=== PATIENT | female | born 1965 | race Caucasian/White ===

== ENCOUNTER 2021-10-31 11:54 | Emergency (ER) | payer OTHER ==
[~2021-10-31] VITALS: Ht 170.2 cm; Wt 52.2 kg
[2021-10-31] MEDS ORDERED: ONDA4ODT MM (15:23)
== END 2021-10-31 15:33 | disposition home or self-care (01) ==
LOC: ER 11:54
DX: R11.0 Nausea (principal); Z20.822 Contact with and (suspected) exposure to COVID-19
CPT/HCPCS: 99283

== ENCOUNTER → 2022-07-11 | Outpatient (CLI) | payer OTHER ==
[~2022-07-11] MED LIST: ONDA4ODT MM
== END | disposition home or self-care (01) ==
LOC: LAB SHORT 16:32 → LAB 16:32
DX: R30.0 Dysuria (principal)
CPT/HCPCS: 87086

== ENCOUNTER 2022-12-12 11:40 | Day surgery (SDC) | payer OTHER ==
[~2022-12-12] VITALS: Ht 167.6 cm; Wt 60.1 kg
[2022-12-12] MEDS ORDERED: [UNRECOGNIZED DRUG - CODE] PO (12:25)
[2022-12-12] MEDS ORDERED: ESCI10 PO (12:26)
[2022-12-12] MEDS ORDERED: Cyclobenzaprine5 MG PO (12:26)
[2022-12-12 15:43] VITALS: BP 122/86
== END 2022-12-12 14:05 | disposition home or self-care (01) ==
LOC: ORSCSDS 11:40
PROVIDERS: Surgery
PROC: 0DJD8ZZ Inspection of Lower Intestinal Tract, Via Natural or Artificial Opening Endoscopic (ICD-10-PCS; principal; 2022-12-12 13:00)
DX: Z12.11 Encounter for screening for malignant neoplasm of colon (principal); K57.30 Diverticulosis of large intestine without perforation or abscess without bleeding; K64.8 Other hemorrhoids; Z87.891 Personal history of nicotine dependence; Z79.899 Other long term (current) drug therapy
CPT/HCPCS: J2704; J7120

== ENCOUNTER 2023-03-04 08:14 | Emergency (ER) | payer OTHER ==
[~2023-03-04] VITALS: Ht 167.6 cm; Wt 59.0 kg
[~2023-03-04 08:14] MED LIST changes: +Cyclobenzaprine5 MG PO; +ESCI10 PO; +[UNRECOGNIZED DRUG - CODE] PO
[2023-03-04 09:45] LABS: BASOPHILS ABSOLUTE AUTO 0.05 K/mm3 (0.00-0.23); BASOPHILS PERCENT AUTO 0 % (0-2); EOSINOPHILS ABSOLUTE AUTO 0.06 K/mm3 (0.00-0.68); EOSINOPHILS PERCENT AUTO 0 % (0-6); Hematocrit 42.9 % (33.0-51.0); Hemoglobin 14.5 g/dL (11.5-16.0); IMMATURE GRAN ABSOLUTE AUTO 0.07 K/mm3 (0.00-0.10); IMMATURE GRAN PERCENT AUTO 1 % (0-1); LYMPHOCYTES ABSOLUTE AUTO 1.41 K/mm3 (0.84-5.20); LYMPHOCYTES PERCENT AUTO 9 % (21-46); MONOCYTES ABSOLUTE AUTO 1.19 K/mm3 (0.16-1.47); MONOCYTES PERCENT AUTO 8 % (4-13); Mean Corpuscular HGB 32.1 pg (26.0-34.0); Mean Corpuscular HGB Conc 33.8 g/dL (31.5-36.5); Mean Corpuscular Volume 95 fL (80-100); Mean Platelet Volume 11.2 fL (9.1-12.4); NEUTROPHILS ABSOLUTE AUTO 12.76 K/mm3 (1.96-9.15); NEUTROPHILS PERCENT AUTO 82 % (41-73); Platelet Count 172 K/mm3 (150-400); RDW Coefficient Variation 12.2 % (11.7-14.2); RDW Standard Deviation 42.5 fL (35.1-46.3); Red Blood Cell Count 4.52 M/mm3 (3.80-5.20); White Blood Cell Count 15.54 K/mm3 (4.00-11.30)
[2023-03-04 09:57] LABS: Albumin, Blood 4.1 g/dL (3.4-5.0); Bilirubin, Total 1.4 mg/dL (0.1-1.0); Bun/Creatinine Ratio 14.1 (12.0-20.0); Calcium, Blood 9.2 mg/dL (8.5-10.1); Creatinine, Blood 0.5 mg/dL (0.40-1.00); Potassium, Blood 4.8 mmol/L (3.5-5.5); Total Protein, Blood 8.1 g/dL (6.4-8.2)
[2023-03-04 15:41] LABS: Source, Urine Straight Cath
[2023-03-04 15:46] LABS: Appearance, Urine Hazy (Clear); Bilirubin, Urine Neg (Neg); Blood, Urine 5+ (Neg); Color, Urine Brown (P-Yellow); Glucose Qualitative, Urine Neg (Neg); Ketones, Urine 3+ (Neg); Leukocyte Esterase, Urine 3+ (Neg); Nitrite, Urine Pos (Neg); Protein, Urine 3+ (Neg); Specific Gravity, Urine 1.015 (1.003-1.022); Urobilinogen, Urine NORM (Normal)
[2023-03-04 16:03] LABS: Bacteria Many /hpf; Red Blood Cells, Urine TNTC /hpf (0-2); Squamous Epithelial Cells Not Seen /hpf (Few); White Blood Cells, Urine 25-50 /hpf (0-5)
[2023-03-04 19:00] VITALS: BP 142/71
== END 2023-03-04 19:52 | disposition short-term general hospital (02) ==
LOC: ER 08:14
PROVIDERS: Physician Assistant; Student in an Organized Health Care Education/Training Program
DX: N13.6 Pyonephrosis (principal); A41.9 Sepsis, unspecified organism; Z79.899 Other long term (current) drug therapy
CPT/HCPCS: 76830; 76856; 80053; 81001; 84703; 85025; 86850; 86900; 86901; 87077; 87086; 87186; 96361; 96374; 96375; 96376; 99285-25; J0696; J0780; J1170; J1885; J2270; J2405; J2765; J7030; P9612

== ENCOUNTER 2023-05-02 08:31 | Emergency (ER) | payer OTHER ==
[~2023-05-02] VITALS: Ht 167.6 cm; Wt 68.0 kg
[2023-05-02] MEDS ORDERED: Ketorolac Tromethamine 15mg Vial IV ONE (08:50)
[2023-05-02] MEDS ORDERED: Nitrofurantoin100 M1 PO (08:51)
[2023-05-02 09:19] LABS: BASOPHILS ABSOLUTE AUTO 0.07 K/mm3 (0.00-0.23); BASOPHILS PERCENT AUTO 1 % (0-2); EOSINOPHILS ABSOLUTE AUTO 0.21 K/mm3 (0.00-0.68); EOSINOPHILS PERCENT AUTO 3 % (0-6); Hematocrit 45.6 % (33.0-51.0); Hemoglobin 15.1 g/dL (11.5-16.0); IMMATURE GRAN ABSOLUTE AUTO 0.07 K/mm3 (0.00-0.10); IMMATURE GRAN PERCENT AUTO 1 % (0-1); LYMPHOCYTES ABSOLUTE AUTO 1.88 K/mm3 (0.84-5.20); LYMPHOCYTES PERCENT AUTO 23 % (21-46); MONOCYTES PERCENT AUTO 7 % (4-13); Mean Corpuscular HGB 31.7 pg (26.0-34.0); Mean Corpuscular HGB Conc 33.1 g/dL (31.5-36.5); Mean Corpuscular Volume 96 fL (80-100); Mean Platelet Volume 9.9 fL (9.1-12.4); NEUTROPHILS ABSOLUTE AUTO 5.34 K/mm3 (1.96-9.15); NEUTROPHILS PERCENT AUTO 65 % (41-73); Platelet Count 293 K/mm3 (150-400); RDW Coefficient Variation 12.9 % (11.7-14.2); RDW Standard Deviation 46.2 fL (35.1-46.3); Red Blood Cell Count 4.77 M/mm3 (3.80-5.20); White Blood Cell Count 8.17 K/mm3 (4.00-11.30)
[2023-05-02 09:44] LABS: Albumin, Blood 4.1 g/dL (3.4-5.0); Bilirubin, Total 0.9 mg/dL (0.1-1.0); Bun/Creatinine Ratio 21.6 (12.0-20.0); Calcium, Blood 9.9 mg/dL (8.5-10.1); Creatinine, Blood 0.83 mg/dL (0.40-1.00); Globulin, Blood 4.2 g/dL (2.2-4.0); Potassium, Blood 3.6 mmol/L (3.5-5.5); Total Protein, Blood 8.3 g/dL (6.4-8.2)
[2023-05-02 10:09] LABS: Influenza A, PCR NEGATIVE (NEGATIVE); Influenza B, PCR NEGATIVE (NEGATIVE); Resp Syncytial Virus, PCR NEGATIVE (NEGATIVE); SARS-Cov-2 (COVID-19) PCR, MMC NEGATIVE (NEGATIVE)
[2023-05-02 12:15] VITALS: BP 110/84
[2023-05-02] MEDS ORDERED: ONDA4ODT MM (12:23)
== END 2023-05-02 13:20 | disposition home or self-care (01) ==
LOC: ER 08:31
PROVIDERS: Physician Assistant
DX: B34.9 Viral infection, unspecified (principal); R07.9 Chest pain, unspecified; Z79.899 Other long term (current) drug therapy
CPT/HCPCS: 0241U; 71046; 80053; 84484; 85025; 93005; 93010; 96374; 99284-25; J1885

== ENCOUNTER → 2023-07-08 | Outpatient (CLI) | payer OTHER ==
[~2023-07-08] MED LIST changes: +Nitrofurantoin100 M1 PO
[2023-07-08 12:47] LABS: Bacterial Vaginosis PCR Negative (NEGATIVE); Candida Group, PCR NOT DETECTED (NOT DETECT); Candida glabrata-krusei, PCR NOT DETECTED (NOT DETECT)
== END | disposition home or self-care (01) ==
LOC: LAB 09:02 → LAB SHORT 09:02
PROVIDERS: Family Medicine
DX: A59.03 Trichomonal cystitis and urethritis (principal)
CPT/HCPCS: 87481; 87661; 87801

== ENCOUNTER 2024-07-07 07:48 | Inpatient (IN) | payer OTHER ==
[~2024-07-07] VITALS: Ht 170.2 cm; Wt 57.8 kg
[2024-07-07] VITALS (23 sets, daily range): BP systolic 96–105; BP diastolic 75–88
[2024-07-07] MEDS ORDERED: Ondansetron HCl 2 MG / ML 2ML Vial IV PRN (08:20)
[2024-07-07 08:30] LABS: BASOPHILS ABSOLUTE AUTO 0.05 K/mm3 (0.00-0.23); BASOPHILS PERCENT AUTO 0 % (0-2); EOSINOPHILS ABSOLUTE AUTO 0.07 K/mm3 (0.00-0.68); EOSINOPHILS PERCENT AUTO 1 % (0-6); Hematocrit 40.5 % (33.0-51.0); Hemoglobin 14.5 g/dL (11.5-16.0); IMMATURE GRAN ABSOLUTE AUTO 0.09 K/mm3 (0.00-0.10); IMMATURE GRAN PERCENT AUTO 1 % (0-1); LYMPHOCYTES ABSOLUTE AUTO 3.07 K/mm3 (0.84-5.20); LYMPHOCYTES PERCENT AUTO 20 % (21-46); MONOCYTES ABSOLUTE AUTO 1.03 K/mm3 (0.16-1.47); MONOCYTES PERCENT AUTO 7 % (4-13); Mean Corpuscular HGB 32.4 pg (26.0-34.0); Mean Corpuscular HGB Conc 35.8 g/dL (31.5-36.5); Mean Corpuscular Volume 90 fL (80-100); Mean Platelet Volume 10.4 fL (9.1-12.4); NEUTROPHILS ABSOLUTE AUTO 10.78 K/mm3 (1.96-9.15); NEUTROPHILS PERCENT AUTO 72 % (41-73); Platelet Count 206 K/mm3 (150-400); RDW Coefficient Variation 12.1 % (11.7-14.2); RDW Standard Deviation 40.2 fL (35.1-46.3); Red Blood Cell Count 4.48 M/mm3 (3.80-5.20); White Blood Cell Count 15.09 K/mm3 (4.00-11.30)
[2024-07-07 08:51] LABS: Albumin, Blood 4.3 g/dL (3.4-5.0); Albumin/Globulin Ratio 1.3 (0.8-1.8); Bilirubin, Total 1.8 mg/dL (0.1-1.0); Bun/Creatinine Ratio 14.9 (12.0-20.0); Calcium, Blood 8.6 mg/dL (8.5-10.1); Creatinine, Blood 0.6 mg/dL (0.40-1.00); Globulin, Blood 3.3 g/dL (2.2-4.0); Potassium, Blood 3.7 mmol/L (3.5-5.5); Total Protein, Blood 7.6 g/dL (6.4-8.2)
[2024-07-07] MEDS ORDERED: Aspirin 325 MG Tab PO ONE (09:05)
[2024-07-07] MEDS ORDERED: Magnesium Sulf 2 GM/Water 50ML 50 ML IV ONE (09:10)
[2024-07-07] MEDS ORDERED: Morphine Sulfate 4 MG/1 ML Injection IV ONE (09:10)
[2024-07-07 10:18] LABS: Anti-Xa UFH, PHA Monitoring <0.10 IU/mL; International Normalized Ratio 1.04; Prothrombin Time Results 11.1 Sec (9.7-11.5)
[2024-07-07] MEDS ORDERED: Heparin Sodium 5000 Units/ML 1ML MDV IV ONE (10:45)
[2024-07-07] MEDS ORDERED: Heparin Sodium,Porcine/0.5 NS 500 ML IV SCH (10:45)
[2024-07-07] MEDS ORDERED: Nitroglycerin 0.4 MG SUBL SL PRN (12:40)
[2024-07-07] MEDS ORDERED: NS 1,000 ML IV ONE ×2 (13:26→13:49)
[2024-07-07] MEDS ORDERED: Verapamil HCL 2.5 MG/ML 2ML Injection ONE (13:26)
[2024-07-07] MEDS ORDERED: Nitroglycerin 2 MG/20 ML BTL ONE (13:26)
[2024-07-07] MEDS ORDERED: Heparin Sodium 1000 Units/ML 10ML MDV ONE (13:26)
[2024-07-07] MEDS ORDERED: NS 250 ML IV ONE (13:26)
[2024-07-07] MEDS ORDERED: FentaNYL Citrate 50 MCG/ML 2 ML Injection ONE (13:49)
[2024-07-07] MEDS ORDERED: Midazolam HCl 1MG / ML 2ML Vial ONE (13:49)
--- NOTE | 2024-07-07 15:03 | NUR ---
PT UPDATE: REPORT FROM ED RN GONZÁLEZ GIVEN VIA PHONE CALL. PT IN MICROBIOLOGY DIRECTOR. WILL CONTINUE TO AWAIT ARRIVAL.
--- NOTE | 2024-07-07 16:00 | NUR ---
ASSUMPTION OF CARE: ASSUMED CARE OF PT AT 1520. PT TO ICU 15 FROM COMMERCIAL MANAGER, ACCOMPANIED BY COMMERCIAL MANAGER RNS AND TRANSPORTED VIA . PT SITTING INDEPENDENTLY IN , A&O X4. PT INDEPENDENTLY TRANSFERRED FROM TO BED W/STANDBY ASSIST. PT SBP SOFT 100S. HR 80-90S. SINUS. TR BAND TO RIGHT WRIST, PER COMMERCIAL MANAGER LEFT ULNAR ACCESSED. NO HEMATOMA NOTED AT PROCEDURE SITE, NO REDNESS, CIRCULATION APPROPRIATE, PULSE STRONG. PT ON RA, SATS >95%. BREATHING EVEN AND UNLABORED. PT HAD NAUSEA IN ED, ZOFRAN GIVEN THEN, NO REPORTS OF NAUSEA ON ARRIVAL TO ICU. PT TAKING SIPS OF WATER. PT HAS 20G IVS IN [facility]. NOTHING INFUSING AT THIS TIME. HEPARING STOPPED IN COMMERCIAL MANAGER AT 1348. PLAN TO CONTINUE HEPARING 4HRS AFTER TR BAND REMOVAL. THIS RN TO CONTINUE TO MONITOR.
[2024-07-07] MEDS ORDERED: Acetaminophen 325 MG TABLET PO PRN (16:05)
[2024-07-07] MEDS ORDERED: Ondansetron HCl 2 MG / ML 2ML Vial IV ONE (16:40)
[2024-07-07] MEDS ORDERED: Pantoprazole Sodium 40 MG Injection IV SCH (17:00)
--- NOTE | 2024-07-07 17:14 | NUR ---
"Spiritual Care Visit | Pt. request Pt. is awake in bed and welcomed my visit. Pt. is pleasant. Facilitated a life review and considered matters of yadiel and belief. Pt. also verbalized some details of her son's recent . Listened with empathy and compassion. Pt. displayed evidence of being aware and alert. Prayed with the Pt. Pt. verbalized gratitude for the spiritual care visit and welcomed this plug saw operator to return."
[2024-07-07 17:23] LABS: Hematocrit 41.4 % (33.0-51.0); Hemoglobin 14.4 g/dL (11.5-16.0)
--- NOTE | 2024-07-07 17:27 | NUR ---
UPDATE PT HAD ONE EPISODE OF ALEX BROWN/RED EMESIS. PT MEDICATED PER EMAR. HOSPITALIST NOTIFIED AND PROVIDER PLACED ORDERS. CARDIOLOGY UPDATED. PT REPORTS RELIEF AFTER ZOFRAN.
[2024-07-07 17:58] LABS: CHOL/HDL RATIO 2.9; Cholesterol 236 mg/dL (50-200); HDL Cholesterol 82 mg/dL (>39); LDL/HDL RATIO 1.7; Low Density Lipoprotein Chol 137 mg/dL (0-110); Magnesium, Blood 2.4 mg/dL (1.6-2.4); Triglycerides 85 mg/dL (30-160); Very Low Density Lipoprot Chol 17 mg/dL (6-32)
[2024-07-07 18:19] LABS: U Cannabinoids Screen DETECTED
[2024-07-07 18:20] LABS: U Amphetamine Screen Not Detected; U Barbituate Screen Not Detected; U Benzodiazapine Screen Not Detected; U Buprenorphine Screen Not Detected; U Cocaine Screen Not Detected; U Methadone Screen Not Detected; U Methamphetamine Screen Not Detected; U Opiates Screen DETECTED; U Oxycodone Screen Not Detected; U Phencyclidine Screen Not Detected
[2024-07-08] VITALS (18 sets, daily range): BP systolic 81–111; BP diastolic 48–90
--- NOTE | 2024-07-08 00:23 | NUR ---
TRANSFER NOTE PT A/OX4, VSS, ON ROOM AIR, ON TELE. TR BAND REMOVED AT 230, NO HEMATOMA OR OOZING, TEGADERM AND ARMBOARD PLACED. PT DENIES CP. PIV'S SALINE LOCKED. ALL OF PT'S BELONGINGS AND MEDS WALKED OVER W/ PT VIA WHEELCHAIR. NO ACUTE EVENTS. BEDSIDE REPORT GIVEN TO ACCEPTING RN.
--- NOTE | 2024-07-08 00:28 | NUR ---
ASSUMED CARE AT 1205. REPORT RECEIVED FROM EXECUTIVE MANAGER SHELDON. PT IS A/OX4, ON RA, VSS, ON TELEMETRY. SHE IS ABLE TO AMBULATE INDEPENDENTLY FROM WHEELCHAIR TO HOSPITAL BED. RIGHT RADIAL SITE IS DRESSED WITH TEGADERM. NO SWELLING, REDNESS, OOZING, OR HEMATOMA NOTED AT SITE. PT STATES IT IS A BIT SORE. TREATED WITH TYLENOL. HEPARIN GTT TO RESUME AT 0320. PT IS RESTING COMFORTABLY IN BED WITH CALL LIGHT IN REACH.
[2024-07-08] MEDS ORDERED: Citalopram Hydrobromide 10 MG TAB PO SCH ×2 (02:00→09:00)
[2024-07-08] MEDS ORDERED: Dose Adjust by Pharmacy XX STA ×3 (02:27→15:38)
[2024-07-08] MEDS ORDERED: Heparin Sodium,Porcine/0.5 NS 500 ML IV SCH (02:30)
--- NOTE | 2024-07-08 04:41 | NUR ---
SHIFT SUMMARY NO ACUTE EVENTS SINCE TRANSFER TO PCU. PT REMAINS A/OX4, COOPERATIVE WITH CARE, AND PLEASANT. ON RA. VSS. RESUMED HEPARIN DRIP AT 15. RADIAL SITE IS CDI. PT DENIES CHEST PAIN/PRESSURE, BUT DOES REPORT SOME SORENESS IN CHEST.
[2024-07-08 06:15] LABS: BASOPHILS ABSOLUTE AUTO 0.05 K/mm3 (0.00-0.23); BASOPHILS PERCENT AUTO 0 % (0-2); EOSINOPHILS ABSOLUTE AUTO 0.07 K/mm3 (0.00-0.68); EOSINOPHILS PERCENT AUTO 1 % (0-6); Hematocrit 41.7 % (33.0-51.0); Hemoglobin 14.4 g/dL (11.5-16.0); IMMATURE GRAN ABSOLUTE AUTO 0.03 K/mm3 (0.00-0.10); IMMATURE GRAN PERCENT AUTO 0 % (0-1); LYMPHOCYTES ABSOLUTE AUTO 3.97 K/mm3 (0.84-5.20); LYMPHOCYTES PERCENT AUTO 30 % (21-46); MONOCYTES ABSOLUTE AUTO 0.66 K/mm3 (0.16-1.47); MONOCYTES PERCENT AUTO 5 % (4-13); Mean Corpuscular HGB 31.8 pg (26.0-34.0); Mean Corpuscular HGB Conc 34.5 g/dL (31.5-36.5); Mean Corpuscular Volume 92 fL (80-100); Mean Platelet Volume 11.7 fL (9.1-12.4); NEUTROPHILS PERCENT AUTO 65 % (41-73); Platelet Count 179 K/mm3 (150-400); RDW Coefficient Variation 12.6 % (11.7-14.2); RDW Standard Deviation 42.6 fL (35.1-46.3); Red Blood Cell Count 4.53 M/mm3 (3.80-5.20); White Blood Cell Count 13.48 K/mm3 (4.00-11.30)
[2024-07-08 06:20] LABS: Bun/Creatinine Ratio 11.3 (12.0-20.0); Calcium, Blood 8.6 mg/dL (8.5-10.1); Creatinine, Blood 0.62 mg/dL (0.40-1.00); Potassium, Blood 3.5 mmol/L (3.5-5.5)
[2024-07-08] MEDS ORDERED: Atorvastatin 40 MG Tab PO SCH (09:00)
[2024-07-08] MEDS ORDERED: Aspirin 81 MG Chew PO SCH (09:00)
[2024-07-08] MEDS ORDERED: TraMADol HCl 50 MG Tab PO PRN (13:50)
--- NOTE | 2024-07-08 15:18 | NUR ---
Pt. is awake in bed and welcomed my visit Pt. is pleasant and was able to verbalize her plan of care. Visit was cut short by a Trauma call. Prayed with the Pt. Pt.verbalized gratitude for the spiritual care visit and welcomed this home sales consultant to return.
--- NOTE | 2024-07-08 18:46 | NUR ---
PT A&O4 ON RA. SHE IS ON A HEP GTT 15 UNITS/KG/HR FOR NSTEMI. LAST 2 UNF ANTIXA DRAWS HAVE BEEN IN THE THERAPEUTIC RANGE. NEXT DRAW WILL BE IN THE MORNING. PT DOES C/O OF PAIN TO THE NECK AND CHEST, WHICH IS BEING TREATED PER EMAR. SHE IS A SBA TO RESTROOM. HER PUNCTURE SITE FROM THE ANGIO ON 07/07 IS WNL W/ARMBOARD IN PLACE.
[2024-07-09 00:41] VITALS: BP 115/81
--- NOTE | 2024-07-09 04:32 | NUR ---
SHIFT SUMMARY PT A/OX4, PLEASANT, COOPERATIVE WITH CARE, VERBALIZES NEEDS. PT REPORTED PAIN DURING DAY SHIFT IN NECK AND CHEST THAT IS WELL MANAGED WITH PRESCRIBED MEDICATIONS. TREATING PER EMAR. VSS, PULSES PALPABLE. CAP REFILL UNDER 3 SECONDS. SINUS RHYTHM WITH HR IN 80S ON RA, SATS ABOVE 90%, PT DENIES SOB. RIGHT RADIAL SITE DISPLAYS NO SWELLING, REDNESS, BLEEDING, HEMATOMA, OR OOZING. PT AMBULATING INDEPENDENTLY IN ROOM WITH SBA FOR CORD/LINE MANAGEMENT TO BATHROOM. HEPARIN RUNNING AT 15. NO BM FOR PENDING GUAIAC. ON CLEAR LIQUID DIET, TOLERATING WELL. DENIES NAUSEA.
[2024-07-09 04:55] VITALS: BP 123/93
[2024-07-09 05:23] LABS: BASOPHILS ABSOLUTE AUTO 0.05 K/mm3 (0.00-0.23); BASOPHILS PERCENT AUTO 1 % (0-2); EOSINOPHILS ABSOLUTE AUTO 0.14 K/mm3 (0.00-0.68); EOSINOPHILS PERCENT AUTO 1 % (0-6); Hematocrit 40.4 % (33.0-51.0); Hemoglobin 13.7 g/dL (11.5-16.0); IMMATURE GRAN ABSOLUTE AUTO 0.04 K/mm3 (0.00-0.10); IMMATURE GRAN PERCENT AUTO 0 % (0-1); LYMPHOCYTES PERCENT AUTO 38 % (21-46); MONOCYTES ABSOLUTE AUTO 0.87 K/mm3 (0.16-1.47); MONOCYTES PERCENT AUTO 8 % (4-13); Mean Corpuscular HGB Conc 33.9 g/dL (31.5-36.5); Mean Corpuscular Volume 94 fL (80-100); NEUTROPHILS ABSOLUTE AUTO 5.66 K/mm3 (1.96-9.15); NEUTROPHILS PERCENT AUTO 52 % (41-73); Platelet Count 193 K/mm3 (150-400); RDW Coefficient Variation 12.7 % (11.7-14.2); RDW Standard Deviation 43.8 fL (35.1-46.3); Red Blood Cell Count 4.28 M/mm3 (3.80-5.20); White Blood Cell Count 10.86 K/mm3 (4.00-11.30)
[2024-07-09 05:57] LABS: Bun/Creatinine Ratio 9.6 (12.0-20.0); Calcium, Blood 9.1 mg/dL (8.5-10.1); Creatinine, Blood 0.63 mg/dL (0.40-1.00); Potassium, Blood 3.4 mmol/L (3.5-5.5)
[2024-07-09] MEDS ORDERED: Dose Adjust by Pharmacy XX STA ×2 (06:15→19:25)
[2024-07-09] MEDS ORDERED: Potassium Chloride 20 MEQ/15 ML UDC PO STA (07:31)
[2024-07-09 08:02] VITALS: BP 115/91
--- NOTE | 2024-07-09 08:35 | NUR ---
Dr. Veronica here to see the patient. Discussed plan of treatment.
[2024-07-09] MEDS ORDERED: Metoprolol Succinate 25 MG TABCR PO SCH (09:00)
[2024-07-09] MEDS ORDERED: Furosemide 20 MG Tab PO SCH (09:00)
[2024-07-09] MEDS ORDERED: Potassium Chloride 20 MEQ/15 ML UDC PO SCH (12:00)
[2024-07-09 12:48] VITALS: BP 120/86
--- NOTE | 2024-07-09 13:47 | NUR ---
The pt is volatile emotionally. I was assigned the patient after she reacted angrily to the initial day shift RN during bedside shift report, and essentially refused treatment from that RN. She vascillates between grief and tearfully recalling her recent loss of her son, anger when discharge plan is brought up (she states that "everyone is just trying to kick me out of here"), and also exuberant happiness. She has overall been cooperative with care and communicating to understand the plan of care although she talks over staff when they are explaining things and interrups frequently with non related comments so it is difficult to be sure if she is retaining all of the information. Recurring assessment and reminders of the plan and current treatment to make sure that the pt understands.
[2024-07-09 15:09] VITALS: BP 111/85
[2024-07-09] MEDS ORDERED: Warfarin Sodium 5 MG Tab PO SCH (18:00)
--- NOTE | 2024-07-09 18:37 | NUR ---
Pt educational materials were provided to the patient this afternoon, specifically on metoprolol and heart failure. She declined reading them or even looking at them, saying that she is just too emotionally fragile at this time. She did allow me to leave them within reach in the room so she might look at them later, she said. She then said that she was concerned if she read about it it might make the information come true for her. I explained that it was not probable information, but actual diagnosis and prescriptions that are true for her. She accepted this but said that she was concerned that if she read it, the information might then be projected on myself or someone else and come true for us. "I have my rules", she said. Notably she declined the offer of a psychiatry evaluation consultation from the doctor this morning.
[2024-07-09 20:52] VITALS: BP 104/78
[2024-07-10 00:41] VITALS: BP 92/69
[2024-07-10 02:27] LABS: Hematocrit 39.1 % (33.0-51.0); Mean Corpuscular HGB 31.8 pg (26.0-34.0); Mean Corpuscular HGB Conc 33.2 g/dL (31.5-36.5); Mean Corpuscular Volume 96 fL (80-100); Mean Platelet Volume 10.7 fL (9.1-12.4); Platelet Count 177 K/mm3 (150-400); RDW Coefficient Variation 12.7 % (11.7-14.2); RDW Standard Deviation 44.7 fL (35.1-46.3); Red Blood Cell Count 4.09 M/mm3 (3.80-5.20); White Blood Cell Count 9.33 K/mm3 (4.00-11.30)
[2024-07-10 02:43] LABS: Bun/Creatinine Ratio 13.2 (12.0-20.0); Calcium, Blood 9.2 mg/dL (8.5-10.1); Creatinine, Blood 0.76 mg/dL (0.40-1.00); Potassium, Blood 3.9 mmol/L (3.5-5.5)
[2024-07-10 02:46] LABS: International Normalized Ratio 1.12; Prothrombin Time Results 11.9 Sec (9.7-11.5)
[2024-07-10 02:58] LABS: BAND PERCENT MAN 2 % (0-8); BASOPHILS PERCENT MAN 0 % (0-2); EOSINOPHILS ABSOLUTE MAN 0.46 K/mm3 (0.00-0.68); EOSINOPHILS PERCENT MAN 5 % (0-6); LYMPHOCYTES % ATYPICAL MANUAL 2 % (0-0); LYMPHOCYTES ABSOLUTE MAN 4.75 K/mm3 (0.84-5.20); LYMPHOCYTES PERCENT MAN 49 % (21-46); MONOCYTES ABSOLUTE MAN 0.18 K/mm3 (0.16-1.47); MONOCYTES PERCENT MAN 2 % (4-13); NEUTROPHILS ABSOLUTE MAN 3.91 K/mm3 (1.96-9.15); SEG NEUTROPHILS PERCENT MAN 40 % (41-73); TOTAL CELLS COUNTED 100
[2024-07-10] MEDS ORDERED: Dose Adjust by Pharmacy XX STA (03:32)
--- NOTE | 2024-07-10 04:24 | NUR ---
PT COMPLIANT WITH CARE AND PLEASANT WHEN CONVERSING WITH RN. HEP GTT RUNNING PER MD/PHARMACY ORDERS, NO CONCERNS AT THIS TIME. VSS, RRR AND UNLABORED, A&OX4, PRN PAIN MEDS GIVEN (REFER TO MAY).
[2024-07-10] MEDS ORDERED: Pantoprazole Sodium 40 MG Tab PO SCH (06:00)
[2024-07-10 06:08] VITALS: BP 102/78
[2024-07-10 07:42] VITALS: BP 93/66
[2024-07-10 11:22] VITALS: BP 102/80
[2024-07-10 16:45] VITALS: BP 109/78
--- NOTE | 2024-07-10 16:53 | NUR ---
SHIFT NOTE: PT A/OX4 PLEASANT AND COOPERATIVE WITH CARE. SHE IS ON TELE IN NSR WITH NO ACUTE EVENTS AND NO REPORTS OF CP. SHE HAS HAD HEPARIN INFUSING PER EMAR T/O DAY. SHE IS ON RA AND DENIES SOB. SHE IS IND IN ROOM WITH ADLS AND CALLS APPROPRIATELY. SHE DENIES PAIN. SHE HAS SOME BRUSING ON HER RIGHT RADIAL SITE THAT HAS NOT WORSENED T/O DAY. CARE CONTINUES
[2024-07-10] MEDS ORDERED: Warfarin Sodium 5 MG Tab PO SCH (18:00)
[2024-07-10 22:11] VITALS: BP 136/76
[2024-07-11] VITALS (9 sets, daily range): BP systolic 97–140; BP diastolic 70–99
[2024-07-11 04:19] LABS: Anti-Xa UFH, PHA Monitoring 0.43 IU/mL; International Normalized Ratio 1.55; Prothrombin Time Results 16.1 Sec (9.7-11.5)
[2024-07-11] MEDS ORDERED: Dose Adjust by Pharmacy XX STA (05:06)
--- NOTE | 2024-07-11 05:09 | NUR ---
PT CALM, COOPERATIVE, AND PLEASANT WITH RN AND STAFF DURING SHIFT. SODUKO PROVIDED TO PT PER PT SHE LIKES TO SOLVE [place]OK[place] PUZZLES. NO COMPLAINTS OF PAIN, VSS, RRR AND UNLABORED, REMAINS ON ROOM AIR. CALLS APPROPRIATELY, A&OX4, HEPARIN GTT INFUSING PER MD/PHARMACY ORDERS, R RADIAL SITE WDL SLIGHT BRUISING NO CONCERNS AT THIS TIME.
[2024-07-11 05:12] LABS: Hemoglobin 13.8 g/dL (11.5-16.0); Mean Platelet Volume 11.4 fL (9.1-12.4); Platelet Count 202 K/mm3 (150-400)
--- NOTE | 2024-07-11 16:49 | NUR ---
REMELTER SHIFT SUMMARY: PATIENT REMAINS ALERT AND ORIENTED X4, ABLE TO UNDERSTAND COMMANDS, AND MAKE NEEDS KNOWN. PATIENT TRANSFERS AND AMBULATES INDEPENDENTLY WITH SBA. VSS, NORMAL SINUS RHYTHM IN THE 90'S, ON ROOM AIR, SPO2 >90%. PATIENT DENIES CHEST PAIN/TIGHTNESS. PATIENT REPORTS GENERALIZED PAIN THROUGOUT SHIFT THAT HAS BEEN MANAGED WITH PHARMACOLOGICAL AND NONPHARMACOLOGICAL INTERVENTIONS. SLIGHT BRUISING NOTED ON RIGHT RADIAL SITE, PATIENT DENIES PAIN. BED IN LOWEST POSITION, CALL LIGHT WITHIN REACH, WILL CONTINUE TO FOLLOW PLAN OF CARE.
[2024-07-11] MEDS ORDERED: Warfarin Sodium 5 MG Tab PO SCH (18:00)
--- NOTE | 2024-07-11 21:50 | NUR ---
PT TO TRANSFER TO MED-SURG FLOOR ROOM 312, REPORT GIVEN AT APPROXIMATELY 2150 TO RN TAKING OVER CARE. PT OVERWHELMED AND ANXIOUS WHEN TOLD BY THIS RN THAT SHE WOULD BE MOVING TO ANOTHER ROOM, PT CALMED DOWN AND EMOTIONAL SUPPORT PROVIDED, VSS, RRR AND UNLABORED, HEPARIN GTT CONTINUING TO RUN PER MD ORDER. SR ON MONITOR, REMAINS ON ROOM AIR. PT CALM AND COOPERATIVE AFTER THIS RN SPOKE WITH PATIENT FOR SOME TIME IN ROOM. NO CONCERNS AT THIS TIME, BELONGINGS TO BE COLLECTED AND TRANSPORTED SHORTLY.
[2024-07-11] MEDS ORDERED: FentaNYL Citrate 50 MCG/ML 2 ML Injection IV PRN (23:30)
[2024-07-12 02:49] VITALS: BP 116/80
[2024-07-12] MEDS ORDERED: LORazepam 1 MG Tab PO ONE (03:15)
[2024-07-12 04:40] LABS: Anti-Xa UFH, PHA Monitoring 0.42 IU/mL; International Normalized Ratio 1.92; Prothrombin Time Results 19.6 Sec (9.7-11.5)
[2024-07-12] MEDS ORDERED: Dose Adjust by Pharmacy XX STA (04:44)
[2024-07-12 04:55] LABS: Hemoglobin 13.6 g/dL (11.5-16.0); Mean Platelet Volume 11.8 fL (9.1-12.4); Platelet Count 199 K/mm3 (150-400)
--- NOTE | 2024-07-12 06:46 | NUR ---
SHIFT SUMMARY PT TRANSFERRED FROM PCU. PT HAS HEPARIN DRIP. 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 PT SET UP IN BED AND RESTING PEACEFULLY. PT STATED SHE HAD 7/10 PAIN. TOO EARLY FOR NEXT DOSE OF PAIN MEDICATION. HOSPITALIST ORDERED 25-50MCG IV FENTANYL. UPON REASSESSMENT, PT STATED SHE DOES NOT LIKE THE WAY THE MEDICATION MAKES HER FEEL AND SHE DOES NOT EVER EVER EVER WANT THAT MEDICINE AGAIN. APPROX 0239, TELE CALLED, STATING PT HAD BIGEM PVC S. UPON ASSESSMENT OF PT, SHE WAS SITTING UP IN BED IN A PANIC. WALKED PT THROUGH BREATHING EXERCISES. HR RETURNED TO NSR. HOSPITALIST CALLED FOR MEDICATION FOR ANXIETY. ONE TIME DOSE PO ATIVAN ORDERED. PT STATED THE MEDICATION, WORKED REALLY WELL AND I FEEL A LOT BETTER, THANK YOU. WILL PASS ON TO DAY SHIFT THAT PT MAY BENEFIT FROM SOME PRN ATIVAN.
[2024-07-12 07:29] VITALS: BP 109/81
--- NOTE | 2024-07-12 08:20 | NUR ---
ASSUMPTION OF CARE: ASSUMED CARE OF PATIENT. ASLEEP DURING SHIFT CHANGE REPORT. LYING SUPINE IN BED. BREATHING EVEN AND UNLABORED. TELE SINUS PVC @ 73. BED IN LOWEST POSITION. CALL LIGHT WITHIN REACH. NO ACUTE NEEDS.
[2024-07-12 11:19] VITALS: BP 101/74
--- NOTE | 2024-07-12 12:45 | NUR ---
T.O. FOR SENNAKOT 2 PO BID; HOLD FOR LOOSE STOOLS. ORDER READ BACK AND CONFIRMED.
[2024-07-12 14:31] LABS: International Normalized Ratio 2.01; Prothrombin Time Results 20.4 Sec (9.7-11.5)
[2024-07-12 15:49] VITALS: BP 104/71
[2024-07-12] MEDS ORDERED: ASPI81CH PO (16:29)
[2024-07-12] MEDS ORDERED: ATOR40TA PO (16:31)
[2024-07-12] MEDS ORDERED: FURO20 PO (16:33)
[2024-07-12] MEDS ORDERED: METO25ER PO (16:35)
[2024-07-12] MEDS ORDERED: PANT40 PO (16:37)
[2024-07-12] MEDS ORDERED: Senna-Extra17.2 MG PO (16:38)
[2024-07-12] MEDS ORDERED: WARF5 PO (16:40)
[2024-07-12] MEDS ORDERED: POTA20LUD PO (16:43)
--- NOTE | 2024-07-12 17:32 | NUR ---
DISCHARGE SUMMARY: A&Ox4. PLEASANT AND COOPERATIVE WITH CARE. CALLS APPROPRIATELY AND IS ABLE TO ADVOCATE NEEDS EFFECTIVELY. AMBULATES INDEPENDENTLY. CONTINENT OF BOWEL AND BLADDER. LBM 07/07; DID HAVE SMALL BM TODAY. MEDS WHOLE c FLUIDS. TELE SINUS c PVCs @ 73. NO C/O PAIN OR DISCOMFORT. MEDICATIONS FAXED TO [facility]. INSTRUCTED TO FOLLOW-UP WITH PCP AND CARDIOLOGY INSTRUCTED. LEFT FLOOR WITH ALL BELONGINGS AND DISCHARGE PACKET, ESCORTED BY CLARIBEL HOLLY. TRANSPORTATION PROVIDED BY [employer].
[2024-07-12] MEDS ORDERED: Warfarin Sodium 5 MG Tab PO ONE (18:00)
[2024-07-12] MEDS ORDERED: Sennosides 8.6 MG Tab PO SCH (21:00)
== END 2024-07-12 17:26 | disposition home or self-care (01) | DRG 280 ==
LOC: ER 07:48 → ICUE 12:38 → PCU 12:38 → ERHOLD 12:38 → ICUE 13:55 → PCU 07-08 00:02 → MEDS 07-11 22:19
PROVIDERS: Emergency Medicine; Internal Medicine; ADMIT Family Medicine
PROC: B2111ZZ Fluoroscopy of Multiple Coronary Arteries using Low Osmolar Contrast (ICD-10-PCS; principal; 2024-07-07)
DX: I21.4 Non-ST elevation (NSTEMI) myocardial infarction (principal); I50.21 Acute systolic (congestive) heart failure; K92.0 Hematemesis; E87.1 Hypo-osmolality and hyponatremia; I25.119 Atherosclerotic heart disease of native coronary artery with unspecified angina pectoris; E78.5 Hyperlipidemia, unspecified; M54.9 Dorsalgia, unspecified; G89.29 Other chronic pain; F41.9 Anxiety disorder, unspecified; I25.10 Atherosclerotic heart disease of native coronary artery without angina pectoris; M19.90 Unspecified osteoarthritis, unspecified site; I08.2 Rheumatic disorders of both aortic and tricuspid valves; F10.20 Alcohol dependence, uncomplicated; E87.6 Hypokalemia; Z79.899 Other long term (current) drug therapy; Z90.49 Acquired absence of other specified parts of digestive tract; Z98.890 Other specified postprocedural states; Z87.891 Personal history of nicotine dependence
CPT/HCPCS: 36415; 71046; 76937; 80048; 80053; 80061; 82271; 82947; 83690; 83735; 83880; 84484; 85014; 85018; 85025; 85049; 85347; 85520; 85610; 85730; 86141; 93005; 93010; 93454; 93571; 93572; 96365; 96366; 96375; 99152; 99153; 99285-25; A9270; C1769; C1887; C1894; C8929; J1644; J2250; J2270; J2405; J2470; J3010; J3475; J7030; J7050; Q9957; Q9967